=== PATIENT | female | born 1945 | race Caucasian/White ===

== ENCOUNTER 2022-07-20 08:57 | Emergency (ER) | payer MEDICARE, OTHER ==
[2022-07-20 09:13] VITALS: BP 152/64
--- NOTE | 2022-07-20 10:10 | ED Physician Documentation ---
History of Present Illness - Stated complaint Stated Complaint: LT FT SWELLING/RED - Chief complaint Chief Complaint: Ext Problem - History obtained from History obtained from: Patient - Additonal information Additional information: Patient is a 77-year-old female presenting for evaluation of left foot redness and swelling that has been present since the end of June. Patient has a history of hypertension, hyperlipidemia. Denies history of diabetes or gout. Denies any known trauma or injury. She was seen by her PCP in [place] and started on a 10-day course of Keflex which she completed on July 17. and daughter also present and also provide history that they feel that the redness did improve while on Keflex but has not completely resolved. Patient Denies known history of PE or DVT. Denies fever, chest pain, shortness of breath. Review of Systems Constitutional: denies: Fever Cardiac: denies: Chest pain / pressure Respiratory: denies: Dyspnea GI: denies: Abdominal Pain Skin: reports: Rash Musculoskeletal: reports: Extremity swelling PD PAST MEDICAL HISTORY - Past Medical History Past Medical History: Yes Cardiovascular: Hypertension, High cholesterol, Coronary artery disease Respiratory: None Neuro: Other Endocrine/Autoimmune: None GI: None INSTRUMENTAL MUSICIAN: None : None HEENT: None Psych: None Musculoskeletal: None Derm: None Other Past Medical History: memory loss - Past Surgical History Past Surgical History: Yes General: Cholecystectomy - Present Medications Home Medications: Ambulatory Orders Medication Instructions Recorded Confirmed Doxycycline Hyclate 100 mg PO BID 10 Days #20 tab 07/20/22 Lisinopril [Zestril] 20 mg PO DAILY 07/20/22 07/20/22 Rosuvastatin Calcium [Crestor] 40 mg PO DAILY 07/20/22 07/20/22 - Allergies Allergies/Adverse Reactions: Allergies Allergy/AdvReac Type Severity Reaction Status Date / Time Sulfa (Sulfonamide Allergy Unknown Verified 07/20/22 09:12 Antibiotics) - Social History Does the pt smoke?: No Smoking Status: Never smoker Does the pt drink ETOH?: Yes ETOH Use: Wine Does the pt have substance abuse?: No - Immunizations Immunizations are current?: Yes PD ED PE NORMAL - General General: Alert and oriented X 3, No acute distress, Well developed/nourished - HEENT HEENT: Atraumatic - Neck Neck: Supple, no meningeal sign - Cardiac Cardiac: RRR, Strong equal pulses - Respiratory Respiratory: No respiratory distress, Clear bilaterally - Abdomen Abdomen: Soft, Non tender - Derm Derm: Other (Erythema to the dorsum of the left foot with associated swelling to foot, ankle and distal calf, no fluctuance or lymphangitic spread, pedal pulses intact, normal range of motion of left ankle and foot) - Extremities Extremities: No deformity, Normal ROM s pain, Other (Swelling from left foot to distal left calf) - Neuro Neuro: Alert and oriented X 3, No motor deficit, No sensory deficit, Normal speech Results - Vitals Vitals: Vital Signs - 24 hr 07/20/22 07/20/22 09:08 11:44 Temperature 36 C L Heart Rate 62 68 Respiratory 16 16 Rate Blood Pressure 152/64 H O2 Saturation 100 Oxygen O2 Source Room air PD Medical Decision Making - ED course Complexity details: reviewed results, d/w patient ED course: Patient is a 77-year-old female presenting for evaluation of redness and swelling to the left foot With swelling extending proximally towards the left calf. She has been on a course of Keflex with some improvement but it did not resolve. Denies any open wounds. No injury to suggest fracture or dislocation.Does not appear to have a septic joint.An ultrasound was obtained Which was negative for DVT which I also reviewed. We will start the patient on a course of doxycycline. He is instructed on need for close follow-up with her PCP. She and family are advised on concerning symptoms to return for. Departure - Departure Disposition: 01 Home, Self Care Clinical Impression: Cellulitis of left foot Condition: Stable Instructions: ED Infec Skin Cellulitis Prescriptions: Doxycycline Hyclate 100 mg PO BID 10 Days #20 tab Comments: Your ultrasound does not show signs of a blood clot in the left leg. We are starting you on a stronger antibiotic called doxycycline and I have sent this prescription to the [facility] pharmacy. Please make sure to complete the course of this antibiotic. I would recommend close follow-up with your primary care provider Next week. If you develop any worsening symptoms such as increased redness, worsening pain or fevers or any new concerns please consider return to the emergency department. Discharge Date/Time: 07/20/22 11:45
--- NOTE | 2022-07-20 11:34 | Ultrasound Report ---
PROCEDURE: Duplex Ext Veins Left INDICATIONS: redness/swelling TECHNIQUE: Real-time imaging, as well as color and pulse Doppler interrogation, were performed of the lower extr emity deep veins from the inguinal ligament to the popliteal fossa. COMPARISON: None. FINDINGS: The deep veins are normally compressible, and free of intraluminal thrombus. Color and pu lse Doppler demonstrate normal phasic intraluminal flow. There is normal augmentation response to di stal compression maneuver. IMPRESSION: Negative for DVT. Reviewed by: Donnell Cardona MD on 07/20/2022 11:32 AM PDT Approved by: Donnell Cardona MD on 07/20/2022 11:32 AM PDT Station ID: [id number]
== END 2022-07-20 11:45 | disposition home or self-care (01) ==
LOC: ED 08:57 → EDBD 08:57 → ED 11:45
DX: L03.116 Cellulitis of left lower limb (principal); I10 Essential (primary) hypertension; E78.00 Pure hypercholesterolemia, unspecified; I25.10 Atherosclerotic heart disease of native coronary artery without angina pectoris; Z79.899 Other long term (current) drug therapy
CPT/HCPCS: 99283; 99284